=== PATIENT | female | born 1990 | race Caucasian/White ===

== ENCOUNTER 2018-06-24 16:38 | Emergency (ER) | payer MEDICAID ==
[~2018-06-24] VITALS: Ht 167.6 cm; Wt 48.7 kg
[2018-06-24 16:48] VITALS: BP 114/78
[2018-06-24] MEDS ORDERED: HYDROcodone/APAP 5/325 TABLET ONE (18:53)
[2018-06-24] MEDS ORDERED: HYDROcodone/APAP 5/325 TABLET PO ONE (19:00)
== END 2018-06-24 19:16 | disposition home or self-care (01) ==
LOC: ED 19:03
DX: S56.117A Strain of flexor muscle, fascia and tendon of right little finger at forearm level, initial encounter (principal); S66.516A Strain of intrinsic muscle, fascia and tendon of right little finger at wrist and hand level, initial encounter; F17.200 Nicotine dependence, unspecified, uncomplicated; Z86.73 Personal history of transient ischemic attack (TIA), and cerebral infarction without residual deficits; X58.XXXA Exposure to other specified factors, initial encounter; Y93.89 Activity, other specified; Y92.009 Unspecified place in unspecified non-institutional (private) residence as the place of occurrence of the external cause; Y99.8 Other external cause status
CPT/HCPCS: 29125; 99284